=== PATIENT | male | born 1990 | race Caucasian/White ===

== ENCOUNTER 2022-06-19 15:13 | Emergency (ER) | payer OTHER ==
[~2022-06-19] VITALS: Ht 182.9 cm; Wt 79.4 kg
[2022-06-19 15:15] VITALS: BP_SYST 143
--- NOTE | 2022-06-19 15:17 | NUR ---
Patient triaged and placed in waiting room. VSS and patient appears in no acute distress at this time. Accompanied by SELF, awaiting available bed, and MD notified of need for MSE.
--- NOTE | 2022-06-19 15:18 | NUR ---
SEEN AND EVALUATED BY DR HOOPER IN TRIAGE ROOM.
--- NOTE | 2022-06-19 16:00 | NUR ---
PT STATES PAIN TO RIGHT CALF, STATES PAIN WITH MOVEMENT. PT STATES PAIN IS 6/10.
[2022-06-19] MEDS ORDERED: IBUP-1969 PO (16:13)
--- NOTE | 2022-06-19 16:38 | NUR ---
BROUGHT BACK TO BED #7 AND WILL ASSUME CARE. MICHAEL WRAP PLACED TO RIGHT CALF BY DEYVI GALLEGOS
--- NOTE | 2022-06-19 16:47 | NUR ---
Patient given written and verbal discharge instructions and verbalizes understanding. ER MD discussed with patient the results and treatment provided. Patient in stable condition. ID arm band removed. Rx of IBUPROFEN given. Patient educated on pain management and to follow up with PMD. Pain Scale 0/10. Opportunity for questions provided and answered. Medication side effect fact sheet provided.
== END 2022-06-19 16:47 | disposition home or self-care (01) ==
LOC: SED 15:13
DX: S86.811A Strain of other muscle(s) and tendon(s) at lower leg level, right leg, initial encounter (principal); Z79.899 Other long term (current) drug therapy; X58.XXXA Exposure to other specified factors, initial encounter; Y93.89 Activity, other specified; Y92.89 Other specified places as the place of occurrence of the external cause; Y99.8 Other external cause status
CPT/HCPCS: 99282

== ENCOUNTER 2022-11-01 19:25 | Emergency (ER) | payer OTHER ==
[~2022-11-01] VITALS: Ht 180.3 cm; Wt 79.4 kg
[~2022-11-01 19:25] MED LIST: IBUP-1969 PO
[2022-11-01 19:36] VITALS: BP_SYST 121
--- NOTE | 2022-11-01 19:36 | NUR ---
Triaged and placed patient to ER Bed 7 for evaluation. No acute respiratory distress at this time. VSS. Informed patient to notify ED staff for any changes in condition or worsening of symptoms while waiting to be seen by a provider. Patient verbalized understanding.
--- NOTE | 2022-11-01 19:52 | NUR ---
Dr. Hartley at bedside examining the patient.
[2022-11-01] MEDS ORDERED: CLIN-142 PO (19:57)
--- NOTE | 2022-11-01 20:11 | NUR ---
Patient given written and verbal discharge instructions and verbalizes understanding. ER MD discussed with patient the results and treatment provided. Patient in stable condition. ID arm band removed. Rx of clindamycin given. Patient educated on pain management and to follow up with PMD. Pain Scale 0/10. Opportunity for questions provided and answered. ED and 911 precautions given.
== END 2022-11-01 20:10 | disposition home or self-care (01) ==
LOC: SED 19:25
DX: M27.40 Unspecified cyst of jaw (principal); Z79.899 Other long term (current) drug therapy
CPT/HCPCS: 99283

== ENCOUNTER 2022-12-30 15:22 | Emergency (ER) | payer OTHER ==
[~2022-12-30] VITALS: Ht 180.3 cm; Wt 81.6 kg
[~2022-12-30 15:22] MED LIST changes: +CLIN-142 PO
[2022-12-30 15:46] VITALS: BP_SYST 147
[2022-12-30] MEDS ORDERED: IBUP-1971 PO (17:01)
[2022-12-30] MEDS ORDERED: TRAM50TA2 PO (17:01)
== END 2022-12-30 17:23 | disposition home or self-care (01) ==
LOC: SED 15:22
DX: S83.92XA Sprain of unspecified site of left knee, initial encounter (principal); Z79.899 Other long term (current) drug therapy; W01.198A Fall on same level from slipping, tripping and stumbling with subsequent striking against other object, initial encounter; Y93.89 Activity, other specified; Y92.89 Other specified places as the place of occurrence of the external cause; Y99.8 Other external cause status
CPT/HCPCS: 73564; 99283

== ENCOUNTER 2023-01-06 07:03 | Emergency (ER) | payer OTHER ==
[~2023-01-06] VITALS: Ht 180.3 cm; Wt 81.6 kg
[~2023-01-06 07:03] MED LIST changes: +IBUP-1971 PO; +TRAM50TA2 PO
[2023-01-06 07:20] VITALS: BP_SYST 127
--- NOTE | 2023-01-06 07:25 | NUR ---
SEEN BY DR KERNS AT THIS TIME
--- NOTE | 2023-01-06 10:52 | NUR ---
Patient given written and verbal discharge instructions and verbalizes understanding. ER MD discussed with patient the results and treatment provided. Patient in stable condition. Rx of given. Patient educated on pain management and to follow up with PMD. Pain Scale [3]. Opportunity for questions provided and answered. Medication side effect fact sheet provided.
== END 2023-01-06 10:52 | disposition home or self-care (01) ==
LOC: SED 07:03
DX: S83.92XA Sprain of unspecified site of left knee, initial encounter (principal); Z79.899 Other long term (current) drug therapy; W17.81XA Fall down embankment (hill), initial encounter; Y93.89 Activity, other specified; Y92.89 Other specified places as the place of occurrence of the external cause; Y99.8 Other external cause status
CPT/HCPCS: 73721; 99284

== ENCOUNTER → 2024-03-12 | Emergency (ER) | payer OTHER ==
[~2024-03-12] VITALS: Ht 180.3 cm; Wt 83.9 kg
[~2024-03-12] MED LIST changes: +CEPH-548 PO
[2024-03-12 18:01] VITALS: BP_SYST 158; PULSE 76; RESP 18; TEMP 98.2; O2SAT 98
== END | disposition home or self-care (01) ==
LOC: SED 17:43
DX: L03.211 Cellulitis of face (principal); R03.0 Elevated blood-pressure reading, without diagnosis of hypertension; Z79.899 Other long term (current) drug therapy
CPT/HCPCS: 99283

== ENCOUNTER 2024-03-31 14:49 | Outpatient (CLI) | payer OTHER ==
[2024-03-31 15:27] LABS: CREATININE 0.82 mg/dL (0.55-1.30); POTASSIUM 3.8 mmol/L (3.5-5.1)
== END 2024-03-31 18:53 | disposition home or self-care (01) ==
LOC: SLB 14:49
PROVIDERS: ATTEND Family Medicine
DX: L03.211 Cellulitis of face (principal); J35.8 Other chronic diseases of tonsils and adenoids
CPT/HCPCS: 70492; 80048; 36415; Q9967 ×2

== ENCOUNTER 2024-06-03 13:32 | Emergency (ER) | payer OTHER ==
[~2024-06-03] VITALS: Ht 180.3 cm; Wt 83.9 kg
[2024-06-03 13:39] VITALS: BP_SYST 132; PULSE 77; RESP 18; TEMP 98.5; O2SAT 98
[2024-06-03] MEDS: ACETAMINOPHEN 500 MG TABLET PO ONE (17:53)
[2024-06-03] MEDS: KETOROLAC TROMETHAMINE 30 MG VIAL IM ONE (17:53)
[2024-06-03 19:45] LABS: COVID19 ANTIGEN SOFIA FIA NEGATIVE (NEGATIVE)
[2024-06-03 19:59] LABS: INFLUENZA TYPE A Negative (NEGATIVE); INFLUENZA TYPE B NEGATIVE (NEGATIVE)
[2024-06-03 20:09] VITALS: BP_SYST 126; PULSE 68; RESP 16; TEMP 98.5; O2SAT 98
== END 2024-06-03 20:09 | disposition home or self-care (01) ==
LOC: SED 13:32
DX: G44.209 Tension-type headache, unspecified, not intractable (principal); Z20.822 Contact with and (suspected) exposure to COVID-19; Z79.899 Other long term (current) drug therapy; Z79.2 Long term (current) use of antibiotics
CPT/HCPCS: 99283; 87426; 36415; 96372; 87804 ×2; J1885